=== PATIENT | male | born 1995 | race African-American/Black ===

== ENCOUNTER 2021-07-12 23:37 | Emergency (ER) | payer OTHER ==
[~2021-07-12] VITALS: Ht 177.8 cm; Wt 59.0 kg
[2021-07-12 23:37] VITALS: BP 108/69
== END 2021-07-13 09:00 | disposition left against medical advice (07) ==
LOC: ER 23:37
DX: R55 Syncope and collapse (principal); M54.2 Cervicalgia; M25.562 Pain in left knee; R07.81 Pleurodynia; Z53.21 Procedure and treatment not carried out due to patient leaving prior to being seen by health care provider; W51.XXXA Accidental striking against or bumped into by another person, initial encounter; Y93.61 Activity, american tackle football; Y92.89 Other specified places as the place of occurrence of the external cause; Y99.8 Other external cause status
CPT/HCPCS: 70450; 71101; 72125; 73562